=== PATIENT | male | born 1970 | race Caucasian/White ===

== ENCOUNTER 2025-05-21 12:21 | Day surgery (SDC) | payer OTHER, SELFPAY ==
--- OUTSIDE RECORDS SUMMARY | 2025-05-06 11:12 | XMS_ITS | Continuity of Care Document ---
Author Organization [facility] Address [address] [place] [address]- Care Team Providers Care Biomedical Equipment Support Specialist Name Role Phone Fatou ANDERSON, Rosalio Callaway Primary Care Physician Encounter [facility] Date(s): 04/01/25 - 05/01/25 [facility] [address] [place] [address]- Encounter Type: Triage Allergies, Adverse Reactions, Alerts No Known Allergies Medications albuterol CFC free 90 mcg/inh inhalation aerosol 2, puffs, Inhalation, 4 times a day, PRN, # 8 Gm, Refills 1, Tot. Refills 1, Maintenance, 09/21/24 3:46:00 PM EDT, Aerosol, Route to Pharmacy Electronically, [id number], [facility]/pharmacy #[id number], 191, cm, 08/12/24 15:11:00 EDT, Height, 59.8, kg, 03/17/24 17:14:00 EDT, Dry Weight Start Date: 09/21/24 Status: Ordered Quantity: 8.0 Unit: g Repeat number: 2 Indications: Chronic obstructive pulmonary disease with (acute) exacerbation; Boost Drinks Boost Drinks, See Instructions, # 60 each, Refills 11, Tot. Refills 11, Maintenance, Drink 1 boost shake twice a day DX R63.5, K52.9, 04/12/25 3:40:00 PM EDT, Supply Start Date: 04/12/25 Status: Ordered Quantity: 60.0 Unit: each Repeat number: 12 Breo Ellipta 100 mcg-25 mcg/inh inhalation powder 1 inhalation, Inhalation, Daily, at the same time every day, j44.9, # 3 each, 3 Refills, Maintenance, 12/17/24 2:16:00 PM EST, Powder, [facility]/pharmacy #[id number], Partial fill upon patient request if the prescription is for a schedule II opioid drug., 1 inhalation Inhalation Daily,Instr:at the same time every day, j44.9, 191, cm, 12/08/24 11:06:00 EST, Height, 59.8, kg, 03/17/24 17:14:00 EDT, Dry Weight Start Date: 12/17/24 Status: Ordered Quantity: 3.0 Unit: each Repeat number: 4 Incruse Ellipta 62.5 mcg/inh inhalation powder 1 each, Inhalation, Every 24 hours, doses should be taken at least 24 hours apart, j44.9, # 3 each,3 Refills, Maintenance, 12/17/24 2:16:00 PM EST, Powder, [facility]/pharmacy #[id number], Partial fill upon patient request if the prescription is for a schedule II opioid drug., 191, cm, 12/08/24 11:06:00 EST, Height, 59.8, kg, 03/17/24 17:14:00 EDT, Dry Weight Start Date: 12/17/24 Status: Ordered Quantity: 3.0 Unit: each Repeat number: 4 Trelegy Ellipta 100 mcg-62.5 mcg-25 mcg/inh inhalation powder 1 puffs, Inhalation, Daily, for 60 days, at the same time every day, # 2 each, 3 Refills, Hard Stop07/04/25 4:16:00 PM EDT, 11/06/24 4:16:00 PM EST, Powder, [facility]/pharmacy #[id number], Partial fill upon patient request if the prescription is for a schedule II opioid drug., 191, cm, 09/28/24 14:24:00 EST, Height, 59.8, kg, 03/17/24 17:14:00 EDT, Dry Weight Start Date: 11/06/24 Stop Date: 07/04/25 Status: Ordered Quantity: 2.0 Unit: each Repeat number: 4 Trelegy Ellipta 100 mcg-62.5 mcg-25 mcg/inh inhalation powder 1 puffs, Inhalation, Daily, at the same time every day, # 2 each, 3 Refills, Maintenance, 12/08/24 3:00:00 PM EST, Powder, [facility]pharmacy #[id number], Partial fill upon patient request if the prescription is for a schedule II opioid drug., 191, cm, 12/08/24 11:06:00 EST, Height, 59.8, kg, 03/17/24 17:14:00 EDT, Dry Weight Start Date: 12/08/24 Stop Date: 08/05/25 Status: Ordered Quantity: 2.0 Unit: each Repeat number: 4 Problem List Condition Confirmation Course Effective Dates Status Health St [facility] Informant Tobacco use Confirmed Active Pulmonary nodules Confirmed Active Emphysema lung Confirmed Active Smoker unmotivated to quit Confirmed Active Underweight Confirmed Active Social History Social History Type Response Smoking Status 10 or more cigarette s (1/2 pack or more)/day in last 30 days; Interested in cessation: No; Patient wants NRT during admission No;Never; Type: Cigarettes; Exposure to Secondhand Smoke: No; Previous treatment: None; Tobacco user in household: Yes; Tobacco use times per day: PREVIOUSLY 2 1/2PPD, NOW 1PPD FOR LAST 10 YEARS; Number of years: 42; Total pack years: 90; Started at age: 11; entered on: 06/19/24 Sex Male Sex Representation Male (finding) Patient Care team information Care Team Personnel Name: Fatou ANDERSON, Rosalio Callaway Position: [facility] Associate Professional Member Role: PCP Address: [address] [place] [id number] Telecom: Name: Leigh Matias RN Position: S RN Member Role: Primary Care Nurse Name: Blanca Syed RN Position: S RN Member Role: Primary Care Nurse Care Team Related Persons Name: PAMELA AIKEN Insurance Providers Guarantor name: PETEY AIKEN Health Plan Information #: 1 Payer: [facility] [employer] Payer Identifier: KATRINA Member Number: [id number] Group Number: [id number] Subscriber Identifier: [id number] Relationship to Subscriber: self Coverage Type: Medicaid (Managed Care) Coverage Verification Date: KATRINA Telecom: NA Address:
--- NOTE | 2025-05-19 14:25 | HO.ANESPROP2 ---
Documented by User: Ibeth Ruiz NP 05/20/25 12:07 HPI - Anesthesia Eval Consult details Narrative: 54yo M for Upper Endoscopy and Colonoscopy Pt with sick visit to PCP 05/06/2025 - COPD exacerbation started on abx and prednisone Active smoker 1 ppd Follows [facility] for 1.? Centrilobular emphysema 2. ?Nicotine addiction 3.??Traumatic pneumothorax 2023 after fall 4.? Cervical spondylosis Stable at 11/2024 office visit [facility] Past Medical History Medical History Weakness Pulmonary nodule COPD (chronic obstructive pulmonary disease) Pneumothorax Surgical History Surgical History History of lung surgery Social History Social History Are you a primary family day carer to a significant other at home: No Do you presently have visiting nurse or other home services: No Patient Tobacco Use Status: Current everyday Tobacco user Tobacco use type: Cigarette Smoked in Last 30 Days: Yes Patient Interested in Nicotine Replacement: No Substance Use Frequency: Daily Have you been hit, kicked, punched, or otherwise hurt by someone within the past year? If so, by whom?: No Are you DNR?: No Advance Directives: No Advance Directives Information Provided: Yes Poor oral hygiene: Yes Meds Allergies Allergy/AdvReac Type Severity Reaction Status Date / Time No Known Allergies Allergy Verified 05/21/25 12:30 Home Medications ?Medication ?Instructions ?Recorded ?Confirmed ?Last Taken ?Type albuterol sulfate 90 mcg/actuation 2 puff inhalation QID PRN wheezing 05/05/25 05/21/25 Unknown History aerosol inhaler (Ventolin HFA) fluticasone furoate 100 1 inh inhalation DAILY 05/05/25 05/21/25 Unknown History mcg-vilanterol 25 mcg/dose inhalation powder (Breo Ellipta) umeclidinium 62.5 mcg/actuation 1 inh inhalation DAILY 05/05/25 05/21/25 Unknown History blister powder for inhalation (Incruse Ellipta) Exam Narrative Narrative: (05/03/2025 14:[address] Chest LDCT Lung Program Baseline) IMPRESSION:? ? 1. Innumerable tree-in-bud nodules in the posterior right lower lobe, likely infectious/inflammatory in etiology. The dominant nodule measures up to 7 mm. ?LungRad Category: 0 Findings suggestive of an inflammatory or infectious process. Follow up LDCT in 1-3 months. ? 2. No significant additional findings requiring further evaluation. Lung-RAD Category Modifier: None.?[1] PFT 08/31/2024: SPIROMETRY: FEV1 2.45, 68%; FVC 4.06, 89%; FEV1/FVC 60%; PEFR 5.48, 59%;? Post FEV1 1.92, 53% (-22%); FVC 3.45, 76% (-15%); PEFR 3.09, 33%; (-44%) SVC 2.59, 57% LUNG VOLUMES (MultiBreath N2): TLC 4.32, 62%; FRC 3.11, 92%; RV ?0.26, 14%, IC 1.21, ERV 2.85 DIFFUSING ?CAPACITY: DLCO and KCO are 33% predicted adjusted for lung volume, Hb, barometric pressure ?? DLCO 7.31, 26%, KCO 2.00, 49% predicted adjusted for Hb of 14.6 ?? VA 3.65, 54% ? 1.86, 41% ? PRIOR RESULTS: FEV1: 2.54, FVC: 4.45 on 11/05/2018. ? ? INTERPRETATION: Mild obstruction. PEFR is reduced.? No significant improvement to bronchodilator.? Gold category 2. Moderate restrictive defect.? The diffusing capacity is severely reduced. Since 11/05/2018, unchanged FEV1 (-4%, 0% pred), FVC (-9%, -6% pred). Assessment and Plan Assessment Anesthesia Assessment: Chart Reviewed Documented by User: Shawn Rosen MD 05/21/25 13:34 [facility] Past Medical History Medical History Weakness Pulmonary nodule COPD (chronic obstructive pulmonary disease) Pneumothorax Functional capacity: independent ambulation Family History Family history of problems with anesthesia: No Surgical History Surgical History History of lung surgery History of Problems with Anesthesia: No Social History Social History Are you a primary family day carer to a significant other at home: No Do you presently have visiting nurse or other home services: No Patient Tobacco Use Status: Current everyday Tobacco user Tobacco use type: Cigarette Smoked in Last 30 Days: Yes Patient Interested in Nicotine Replacement: No Substance Use Frequency: Daily Have you been hit, kicked, punched, or otherwise hurt by someone within the past year? If so, by whom?: No Are you DNR?: No Advance Directives: No Advance Directives Information Provided: Yes Poor oral hygiene: Yes Meds Allergies Allergy/AdvReac Type Severity Reaction Status Date / Time No Known Allergies Allergy Verified 05/21/25 12:30 Home Medications ?Medication ?Instructions ?Recorded ?Confirmed ?Last Taken ?Type albuterol sulfate 90 mcg/actuation 2 puff inhalation QID PRN wheezing 05/05/25 05/21/25 Unknown History aerosol inhaler (Ventolin HFA) fluticasone furoate 100 1 inh inhalation DAILY 05/05/25 05/21/25 Unknown History mcg-vilanterol 25 mcg/dose inhalation powder (Breo Ellipta) umeclidinium 62.5 mcg/actuation 1 inh inhalation DAILY 05/05/25 05/21/25 Unknown History blister powder for inhalation (Incruse Ellipta) Exam Height,Weight and Vital Signs: 73 inches ; 122 lbs Airway Mallampati Class: I Loose/Missing/Broken Teeth: Yes Heart: rrr Lungs: cta Other: normal Assessment and Plan Final Anesthetic Review Family History of Problems with Anesthesia: No History of Problems with Anesthesia: No ASA Class: II and III Final Preanesthetic Review: No Changes in Pt Med Stat, Meds/Allgs Chart Reviewed, Consent Obtained/Reviewed and Anes Risks/Benef Reviewed Patient Risk: Low Procedure Risk: Low
[2025-05-21 12:29] VITALS: BMI 17.5
[2025-05-21 12:53] VITALS: BP 133/66; PULSE 98; RESP 18; TEMP 36.6; O2SAT 94
[2025-05-21] MEDS: Lactated Ringers 1,000 ML 100 ML IVCONT (13:07)
[2025-05-21] MEDS: Albuterol Sulfate (0.083%) 2.5 MG/3 ML VIAL.NEB INHALE (13:07)
[2025-05-21] MEDS: Sodium Phosphate,Mono-Dibasic 133 ML ENEMA PR (13:07)
--- NOTE | 2025-05-21 13:27 | MHC.SHP ---
Pre-Procedural Eval Section A - 24 Hr Update-Section A only Date of Service: 05/21/25 The patient is an INPATIENT: No Changes since office visit: No Cold of Flu in the past 2 weeks, No New Medical Problems, No Changes in Medication and No Patient answered all questions The patient has been examined within 24 hours of the surgical procedure. The History & Physical has been completed within 30 days and I have reviewed it.: Yes Section B - Complete if H&P > 30 days Chief Complaint: Gastro-esophageal reflux disease without esophagit Allergies: Allergies Allergy/AdvReac Type Severity Reaction Status Date / Time No Known Allergies Allergy Verified 05/21/25 12:30 Plan I have reviewed the history and physical and performed a pertinent physical examination on my patient. No changes have occurred unless specified. Time Spent With Patient Time: Total time managing care of this patient today ____ minutes.
[2025-05-21 13:31] VITALS: BMI 16.6
--- NOTE | 2025-05-21 14:25 | P.BOP_ITS ---
Brief Operative Note Date of Service: 05/21/25 Pre-op diagnosis: abd pain Post-op diagnosis: same Procedure: EGD colonoscopy Surgeon: Topher Maloney MD Anesthesia: MAC Was an Solution Design And Analysis Manager used for this Procedure?: No Estimated blood loss (mL): 5 Pathology: other Condition: stable Disposition: PACU
[2025-05-21 14:30] VITALS: BP 110/70; PULSE 80; RESP 16; TEMP 36.7; O2SAT 98
[2025-05-21 14:45] VITALS: BP 109/59; PULSE 96; RESP 18; TEMP 37.2; O2SAT 97
--- NOTE | 2025-05-21 22:56 | OP_ITS ---
DATE OF SERVICE: 05/21/2025 SURGEON: Topher Maloney MD INDICATIONS: Abdominal pain and abnormal findings in the GI tract. PREOPERATIVE DIAGNOSIS: POSTOPERATIVE DIAGNOSIS: PROCEDURE PERFORMED: Upper endoscopy with biopsy, colonoscopy to the cecum with snare polypectomy and biopsy. ESTIMATED BLOOD LOSS: COMPLICATIONS: ANESTHESIA: Monitored anesthesia care. ASSISTANTS: SPECIMENS: DESCRIPTION OF PROCEDURE: A history and physical was performed. The risks and benefits of the procedure were explained to the patient, and informed consent was obtained. The patient was placed in the left lateral decubitus position. The Olympus video gastroscope was introduced into the esophagus, stomach, and duodenum. Examination was performed. The scope was removed. He was repositioned for colonoscopy. A digital rectal exam was performed and was found to be normal. The Olympus pediatric video colonoscope was introduced into the rectum and advanced to the cecum. The cecum was identified by transillumination, palpation, and identification of ileocecal valve. Examination was performed. The scope was removed. He tolerated both procedures well, and was returned to the recovery area in stable condition. FINDINGS: Upper endoscopy: 1. Esophagus: The esophagus was normal. There was a small finding hiatal hernia. 2. Stomach: The stomach showed no evidence of masses, ulcers, or polyps. There was some erythema consistent with gastritis. Biopsies were obtained from the antrum. 3. Duodenum: The bulb and 2nd portion were normal. Biopsies were obtained from the 2nd portion. Colonoscopy: The terminal ileum was not examined. The visualized colonic mucosa was normal. There was no evidence of active colitis. Biopsies were obtained from the right colon and sigmoid. The quality of the prep was adequate. There was some stool left in the right colon and transverse colon which was washed and suctioned. A single polyp measuring approximately 10 mm was identified in the sigmoid at 20 cm and removed with a hot snare. The polyp was recovered via suction. No other polyps were identified. Retroflexed examination showed moderately large internal hemorrhoids. IMPRESSION: 1. Gastritis. 2. Colon polyp. RECOMMENDATION: Follow up the biopsy results. MD DMITRIY Boss/PHYLLIS / [id number]
== END 2025-05-21 15:24 | disposition home or self-care (01) ==
PROVIDERS: PCP Nurse Practitioner Family; Visit Provider Internal Medicine Gastroenterology
PROC: (CPT 45385; principal; 2025-05-21 13:40)
DX: R93.5 Abnormal findings on diagnostic imaging of other abdominal regions, including retroperitoneum (principal); K63.5 Polyp of colon; K64.8 Other hemorrhoids; K21.9 Gastro-esophageal reflux disease without esophagitis; K29.60 Other gastritis without bleeding; K44.9 Diaphragmatic hernia without obstruction or gangrene; J44.9 Chronic obstructive pulmonary disease, unspecified; F17.210 Nicotine dependence, cigarettes, uncomplicated; Z79.899 Other long term (current) drug therapy
CPT/HCPCS: 45385; 45380; 43239; 88305; 88313; 88342; J2704; J3010